=== PATIENT | female | born 1970 | race Caucasian/White ===

== ENCOUNTER 2017-09-05 23:11 | Emergency (ER) | payer SELFPAY ==
[~2017-09-05] VITALS: Ht 167.6 cm; Wt 68.2 kg
[2017-09-05 23:17] VITALS: BP 130/68; PULSE 78; RESP 18; TEMP 97.2; O2SAT 99
--- NOTE | 2017-09-05 23:30 | PD ---
HPI Chief Complaint: Complaint Time Seen by Provider: 23:29 Travel History International Travel<30 days: No Contact w/Intl Traveler<30days: No Traveled to known affect area: No History of Present Illness HPI 47-year-old female patient with history of frequent UTIs, here because she states that she started having burning and blood in her urine today. She also complains of mild suprapubic discomfort. She denies any nausea, vomiting, fevers, or any other symptoms. Modifying Factors: None Associated Signs & Symptoms: Urinary symptoms Risk Factors: UTIs frequently PFSH Past Medical History ?: Unknown LMP: 08/18/17 Social History Tobacco Use: No Allergies-Medications (Allergen,Severity, Reaction): Coded Allergies: Sulfa (Sulfonamide Antibiotics) (Verified Allergy, Unknown, Hives, 09/05/17 ) Review of Systems Except as stated in HPI: all other systems reviewed are Neg Physical Exam Narrative GENERAL: Well-developed middle-age female patient currently in mild distress. Awake and oriented 3. SKIN: Focused skin assessment warm/dry. HEAD: Atraumatic. Normocephalic. EYES: Pupils equal and round. No scleral icterus. No injection or drainage. ENT: No nasal bleeding or discharge. Mucous membranes pink and moist. NECK: Trachea midline. No JVD. CARDIOVASCULAR: Regular rate and rhythm. No murmur appreciated. RESPIRATORY: No accessory muscle use. Clear to auscultation. Breath sounds equal bilaterally. GASTROINTESTINAL: Abdomen soft, mild suprapubic tenderness without guarding rebound, nondistended. Hepatic and splenic margins not palpable. MUSCULOSKELETAL: No obvious deformities. No clubbing. No cyanosis. No edema. NEUROLOGICAL: Awake and alert. No obvious cranial nerve deficits. Motor grossly within normal limits. Normal speech. PSYCHIATRIC: Appropriate mood and affect; insight and judgment normal. Data Data Last Documented VS Vital Signs Date Time Temp Pulse Resp B/P (MAP) Pulse Ox O2 Delivery O2 Flow Rate FiO2 09/05/17 23:17 97.2 78 18 130/68 (88) 99 Orders Orders Urinalysis - C+S If Indicated (09/05/17 23:22) Urine Culture (09/05/17 23:30) Labs Laboratory Tests Test 09/05/17 23:30 Urine Color RED Urine Turbidity CLOUDY Urine pH 6.0 Urine Specific Mary D 1.010 Urine Protein 100 mg/dL Urine Glucose (UA) NEG mg/dL Urine Ketones NEG mg/dL Urine Occult Blood LARGE Urine Nitrite NEG Urine Bilirubin NEG Urine Urobilinogen 0.2 MG/DL Urine Leukocyte Esterase MOD Urine RBC INNUM /hpf Urine WBC 50-99 /hpf Urine Squamous Epithelial Cells > 8 /hpf Urine Bacteria FEW /hpf Microscopic Urinalysis Comment CULTURE INDICATED MDM Medical Decision Making Medical Screen Exam Complete: Yes Emergency Medical Condition: Yes Medical Record Reviewed: Yes Interpretation(s) Laboratory Tests Test 09/05/17 23:30 Urine Color RED (YELLW/STRAW) Urine Turbidity CLOUDY (CLEAR) Urine Protein 100 mg/dL (NEG-TRACE) Urine Occult Blood LARGE (NEG) Urine Leukocyte Esterase MOD (NEG) Urine RBC INNUM /hpf (0-3) Urine WBC 50-99 /hpf (0-5) Urine Squamous Epithelial Cells > 8 /hpf (0-5) Urine Bacteria FEW /hpf (NONE) Differential Diagnosis UTI versus gross hematuria Narrative Course UA significant for UTI which I plan to treat. Return for any worsening in pain , bleeding, fevers, and as needed. The plan has been discussed with the patient and she states understanding. Diagnosis Primary Impression: UTI (urinary tract infection) Med/Other Pt SpecificInfo: Prescription(s) given Scripts Nitrofurantoin Monohydrate Macrocrystals (Macrobid) 100 Mg Cap 100 MG PO BID for Infection for 7 Days, #14 CAP 0 Refills Prov: Ahmet eRhman MD 09/05/17 Disposition: 01 DISCHARGE HOME Condition: Stable Ahmet Rehman MD September 05, 2017 23:30
[2017-09-05 23:38] LABS: BILIRUBIN, URINE NEG (NEG); BLOOD, URINE LARGE (NEG); GLUCOSE,URINE NEG (NEG); KETONE, URINE NEG (NEG); NITRITE,URINE NEG (NEG); URINE LEUKOCYTE ESTERASE MOD (NEG)
[2017-09-05 23:42] LABS: URINE COLOR RED (YELLW/STRAW)
[2017-09-05 23:43] LABS: RBC, URINE INNUM /hpf (0-3); SQUAMOUS EPITHELIAL CELL URINE > 8 /hpf (0-5)
[2017-09-05 23:44] LABS: BACTERIA, URINE FEW /hpf
[2017-09-05] MEDS ORDERED: MACR100C2 PO (23:46)
[2017-09-06] MEDS ORDERED: NITROFURANTOIN MONOHYD MACROCR 100 MG CAP PO ONE
== END 2017-09-06 00:03 | disposition home or self-care (01) ==
LOC: PHEFT 23:11
DX: N39.0 Urinary tract infection, site not specified (principal); Z87.440 Personal history of urinary (tract) infections
CPT/HCPCS: 81001; 87086; 99283